=== PATIENT | female | born 1950 | race Caucasian/White ===

== ENCOUNTER 2018-01-17 17:19 | Emergency (ER) | payer MEDICAID ==
[~2018-01-17] VITALS: Ht 172.7 cm; Wt 66.7 kg
== END 2018-01-17 20:53 | disposition home or self-care (01) ==
LOC: ED 17:19
DX: R10.84 Generalized abdominal pain (principal); J44.9 Chronic obstructive pulmonary disease, unspecified; F17.200 Nicotine dependence, unspecified, uncomplicated; Z88.0 Allergy status to penicillin; Z85.43 Personal history of malignant neoplasm of ovary
CPT/HCPCS: 74177; 80053; 81001; 83690; 85025; 96374; 96375; 99284; J1885; J2405; J7030; Q9967